=== PATIENT | female | born 1985 | race Caucasian/White ===

== ENCOUNTER → 2020-06-12 | Outpatient (CLI) | payer OTHER ==
[~2020-06-12] MED LIST: CEFUROXIME500 MG PO; IBUPROFEN600 MG PO; MEDROL4 MG PO; NORCO 7.5-3251 EACH PO; NORFLEX 100 MG100 MG PO; VENTOLIN HFA 66.7 GM INH; ZITHROMAX250 MG PO
[2020-06-12 15:49] LABS: HEMOGLOBIN 14.7 gm/dl (12.3-15.3); RED BLOOD COUNT 4.5 M/UL (4.00-5.10); WHITE BLOOD COUNT 2.1 K/UL (4.5-11.0)
[2020-06-12 16:13] LABS: BUN/CREATININE RATIO 10 (0-10)
[2020-06-13 12:15] LABS: ANTI-DSDNA ANTIBODIES 1 IU/mL (0-9); HBSAG SCREEN Negative (Negative); HCV ANTIBODY <0.1 (0.0-0.9)
[2020-06-13 15:12] LABS: COMPLEMENT C3, SERUM 80 mg/dL (82-167); COMPLEMENT C4, SERUM 17 mg/dL (12-38)
[2020-06-18 10:54] LABS: DSDNA CRITHIDIA LUCILIAE IFA Positive; DSDNA CRITHIDIA LUCILIAE TITER 1:40
[2020-06-18 17:10] LABS: QUANTIFERON MITOGEN VALUE >10.00 IU/mL (.); QUANTIFERON NIL VALUE 0.07 IU/mL (.); QUANTIFERON TB1 AG VALUE 0.08 IU/mL (.); QUANTIFERON TB2 AG VALUE 0.12 IU/mL (.); QUANTIFERON-TB GOLD PLUS Negative (Negative)
== END ==
LOC: LAB 13:51
PROVIDERS: Internal Medicine
DX: M32.9 Systemic lupus erythematosus, unspecified (principal); D89.89 Other specified disorders involving the immune mechanism, not elsewhere classified; M25.50 Pain in unspecified joint; Z79.899 Other long term (current) drug therapy; Z92.29 Personal history of other drug therapy
CPT/HCPCS: 36415; 80053; 81001; 82570; 84156; 85025; 85652; 86140; 86160; 86162; 86225; 86255; 86704; 86803; 87340

== ENCOUNTER → 2020-07-05 | Outpatient (CLI) | payer OTHER | LOC: KOH-I 07-03 09:15 → US 07:48 → KOH-I 07-10 11:00 | DX: R74.01 Elevation of levels of liver transaminase levels (principal) | CPT/HCPCS: 76705 ==

== ENCOUNTER → 2020-08-08 | Outpatient (CLI) | payer OTHER ==
[2020-08-08 11:11] LABS: RED BLOOD COUNT 4.11 M/UL (4.00-5.10)
[2020-08-08 11:39] LABS: BUN/CREATININE RATIO 7 (0-10)
== END ==
LOC: LAB 09:55
PROVIDERS: Internal Medicine
DX: Z51.81 Encounter for therapeutic drug level monitoring (principal); Z79.899 Other long term (current) drug therapy
CPT/HCPCS: 36415; 80053; 85025

== ENCOUNTER 2020-09-12 13:47 | Emergency (ER) | payer OTHER ==
[~2020-09-12 13:47] MED LIST changes: -CEFUROXIME500 MG PO; -MEDROL4 MG PO; -VENTOLIN HFA 66.7 GM INH; -ZITHROMAX250 MG PO
[2020-09-12 17:12] LABS: RED BLOOD COUNT 4.09 M/UL (4.00-5.10); WHITE BLOOD COUNT 8.3 K/UL (4.5-11.0)
[2020-09-12] MEDS ORDERED: CEFUROXIME500 MG PO (18:35)
[2020-09-12] MEDS ORDERED: MEDROL4 MG PO (18:35)
[2020-09-12] MEDS ORDERED: VENTOLIN HFA 66.7 GM INH (18:35)
[2020-09-12] MEDS ORDERED: ZITHROMAX250 MG PO (18:35)
== END 2020-09-12 20:14 | disposition home or self-care (01) ==
LOC: ER1 13:47
PROVIDERS: Physician Assistant
DX: U07.1 COVID-19 (principal); J12.82 Pneumonia due to coronavirus disease 2019; F17.210 Nicotine dependence, cigarettes, uncomplicated
CPT/HCPCS: 0240U; 36600; 71045; 80053; 82803; 83605; 83690; 83880; 85025; 86140; 87040; 93005; 96374; 96375; 99285; J0456; J1100; J7030; Q9967

== ENCOUNTER → 2020-10-09 | Outpatient (CLI) | payer OTHER ==
[~2020-10-09] MED LIST changes: +CEFUROXIME500 MG PO; +MEDROL4 MG PO; +VENTOLIN HFA 66.7 GM INH; +ZITHROMAX250 MG PO
== END ==
LOC: WCC 13:00
DX: S81.002A Unspecified open wound, left knee, initial encounter (principal); T25.222A Burn of second degree of left foot, initial encounter; T25.221A Burn of second degree of right foot, initial encounter; X08.8XXA Exposure to other specified smoke, fire and flames, initial encounter; L93.0 Discoid lupus erythematosus; D64.9 Anemia, unspecified
CPT/HCPCS: G0463

== ENCOUNTER → 2020-10-15 | Outpatient (CLI) | payer OTHER ==
[~2020-10-15] MED LIST changes: +CIPRO500 MG PO; +FLAGYL500 MG PO
== END ==
LOC: WCC 13:15
DX: T25.222A Burn of second degree of left foot, initial encounter (principal); T25.221A Burn of second degree of right foot, initial encounter; T31.0 Burns involving less than 10% of body surface; F41.9 Anxiety disorder, unspecified; M32.9 Systemic lupus erythematosus, unspecified; M35.00 Sjogren syndrome, unspecified; Z72.0 Tobacco use; Z88.1 Allergy status to other antibiotic agents

== ENCOUNTER → 2020-10-23 | Outpatient (CLI) | payer OTHER | LOC: WCC 13:30 | DX: L55.1 Sunburn of second degree (principal); F41.9 Anxiety disorder, unspecified; M32.9 Systemic lupus erythematosus, unspecified; M35.00 Sjogren syndrome, unspecified; Z79.899 Other long term (current) drug therapy; Z88.1 Allergy status to other antibiotic agents; F17.200 Nicotine dependence, unspecified, uncomplicated ==

== ENCOUNTER → 2020-10-30 | Outpatient (CLI) | payer OTHER | LOC: WCC 15:00 | PROC: 0JBR0ZZ Excision of Left Foot Subcutaneous Tissue and Fascia, Open Approach (ICD-10-PCS; principal; 2020-10-30) | PROC: 0JBQ0ZZ Excision of Right Foot Subcutaneous Tissue and Fascia, Open Approach (ICD-10-PCS; 2020-10-30) | DX: T25.222D Burn of second degree of left foot, subsequent encounter (principal); T25.221D Burn of second degree of right foot, subsequent encounter; T24.202D Burn of second degree of unspecified site of left lower limb, except ankle and foot, subsequent encounter; T24.022D Burn of unspecified degree of left knee, subsequent encounter; T24.201D Burn of second degree of unspecified site of right lower limb, except ankle and foot, subsequent encounter; D64.9 Anemia, unspecified; M32.9 Systemic lupus erythematosus, unspecified; F41.9 Anxiety disorder, unspecified; M35.00 Sjogren syndrome, unspecified; Z79.51 Long term (current) use of inhaled steroids; Z79.2 Long term (current) use of antibiotics; Z79.899 Other long term (current) drug therapy; Z88.1 Allergy status to other antibiotic agents; Z79.891 Long term (current) use of opiate analgesic; X30.XXXD Exposure to excessive natural heat, subsequent encounter ==

== ENCOUNTER → 2020-11-13 | Outpatient (CLI) | payer OTHER | LOC: WCC 11:48 | DX: T25.229 Burn of second degree of unspecified foot (principal); F41.9 Anxiety disorder, unspecified; M32.9 Systemic lupus erythematosus, unspecified; M35.00 Sjogren syndrome, unspecified; Z72.0 Tobacco use | CPT/HCPCS: 97597 ==

== ENCOUNTER 2020-11-21 09:36 | Emergency (ER) | payer OTHER ==
[~2020-11-21 09:36] MED LIST changes: -CIPRO500 MG PO; -FLAGYL500 MG PO
[2020-11-21 12:23] LABS: RED BLOOD COUNT 3.98 M/UL (4.00-5.10); WHITE BLOOD COUNT 6.8 K/UL (4.5-11.0)
[2020-11-21 12:32] LABS: BUN/CREATININE RATIO 5 (0-10)
[2020-11-21] MEDS ORDERED: CIPRO500 MG PO (15:32)
[2020-11-21] MEDS ORDERED: FLAGYL500 MG PO (15:32)
== END 2020-11-21 15:45 | disposition home or self-care (01) ==
LOC: ER1 09:36
PROVIDERS: Emergency Medicine
DX: N39.0 Urinary tract infection, site not specified (principal); K85.90 Acute pancreatitis without necrosis or infection, unspecified; F17.200 Nicotine dependence, unspecified, uncomplicated; Z20.822 Contact with and (suspected) exposure to COVID-19
CPT/HCPCS: 71045; 80053; 81001; 82550; 82553; 83605; 83690; 83735; 83874; 84484; 84703; 85025; 87040; 87077; 87086; 87186; 93005; 96374; 99284; J0696; J7030; Q9967; U0002

== ENCOUNTER 2020-11-28 12:42 | Emergency (ER) | payer OTHER ==
[2020-11-28 14:50] LABS: HEMOGLOBIN 11.2 gm/dl (12.3-15.3); RED BLOOD COUNT 3.78 M/UL (4.00-5.10); WHITE BLOOD COUNT 6.2 K/UL (4.5-11.0)
[2020-11-28 14:54] LABS: BUN/CREATININE RATIO 9 (0-10)
== END 2020-11-28 19:14 | disposition home or self-care (01) ==
LOC: ER1 12:42
PROVIDERS: Physician Assistant
DX: E87.6 Hypokalemia (principal); R53.1 Weakness; Z88.1 Allergy status to other antibiotic agents; Z88.8 Allergy status to other drugs, medicaments and biological substances
CPT/HCPCS: 70450; 80053; 82550; 82553; 83735; 83874; 84484; 85025; 93005; 99285; J3480

== ENCOUNTER → 2020-11-28 | Outpatient (CLI) | payer OTHER ==
[~2020-11-28] MED LIST changes: +CIPRO500 MG PO; +FLAGYL500 MG PO
[2020-11-28 08:41] LABS: HEMOGLOBIN 11.3 gm/dl (12.3-15.3); RED BLOOD COUNT 3.74 M/UL (4.00-5.10)
[2020-11-28 09:14] LABS: BUN/CREATININE RATIO 7 (0-10)
== END ==
LOC: US 07:51
PROVIDERS: Internal Medicine
DX: R10.11 Right upper quadrant pain (principal); D72.819 Decreased white blood cell count, unspecified; E53.8 Deficiency of other specified B group vitamins; K85.90 Acute pancreatitis without necrosis or infection, unspecified; R53.83 Other fatigue; E83.42 Hypomagnesemia; E87.6 Hypokalemia; E55.9 Vitamin D deficiency, unspecified; K76.0 Fatty (change of) liver, not elsewhere classified
CPT/HCPCS: 36415; 76705; 80053; 82607; 82746; 83690; 83735; 84439; 84443; 85025